=== PATIENT | female | born 1995 | race Caucasian/White ===

== ENCOUNTER 2018-05-25 01:40 | Emergency (ER) | payer BC, SELFPAY ==
[2018-05-25] MEDS ORDERED: diphenhydrAMINE 50 MG CAP ONE (02:16)
== END 2018-05-25 02:19 | disposition home or self-care (01) ==
LOC: ERS 01:40
DX: B34.9 Viral infection, unspecified (principal); R09.82 Postnasal drip
CPT/HCPCS: 99283